=== PATIENT | female | born 1985 | race Caucasian/White ===

== ENCOUNTER 2019-05-22 15:33 | Observation (INO) | payer OTHER ==
[2019-05-22] MEDS ORDERED: SODIUM CHLORIDE 0.9% 500 ML 500 ML IV SCH (16:03)
[2019-05-22 16:10] VITALS: BP 99/62
[2019-05-22 16:22] LABS: Hematocrit 27.7 % (30.3-42.9); Hemoglobin 8.5 gm/dl (10.1-14.3); Mean Corpuscular HGB Conc 31 % (30-34); Red Blood Count 4.95 M/mm3 (3.65-5.03)
[2019-05-22 16:42] LABS: Mean Corpuscular Volume 56 fl (79-97); Red Cell Distribution Width 24.1 % (13.2-15.2)
[2019-05-22] MEDS ORDERED: IRON DEXTRAN COMPLEX 100 MG/2 ML INJ IM ONE (17:12)
[2019-05-22 17:47] LABS: Platelet Count 176 K/mm3 (140-440)
== END 2019-05-22 19:36 | disposition home or self-care (01) ==
LOC: LD 15:33
PROVIDERS: ADMIT Obstetrics & Gynecology; ATTEND Obstetrics & Gynecology
DX: O99.013 Anemia complicating pregnancy, third trimester (principal); Z3A.34 34 weeks gestation of pregnancy
CPT/HCPCS: 36415; 85027; 86850; 86900; 86901; 86920; 96372; G0378; G0379; J1750

== ENCOUNTER 2019-07-03 09:44 | Inpatient (IN) | payer OTHER ==
[2019-07-03] MEDS ORDERED: TERBUTALINE 1 MG/1 ML INJ IVP PRN (11:31)
[2019-07-03] MEDS ORDERED: BUTORPHANOL 2 MG/1 ML INJ IV PRN ×2 (11:31→11:59)
[2019-07-03] MEDS ORDERED: LIDOCAINE (2%) 20 MG/1 ML VIAL 20 ML MDV INFILTRATI ONE (11:31)
[2019-07-03] MEDS ORDERED: ePHEDrine SULFATE 50 MG/1 ML INJ IV PRN ×2 (11:31→14:47)
[2019-07-03] MEDS ORDERED: fentaNYL 100 MCG/2 ML INJ IV PRN (11:31)
[2019-07-03] MEDS ORDERED: AMPICILLIN/NS 2 GM/100 ML 2 GM/100 ML BAG IV ONE (11:31)
[2019-07-03] MEDS ORDERED: TERBUTALINE 1 MG/1 ML INJ SUB-Q PRN (11:31)
[2019-07-03] MEDS ORDERED: MINERAL OIL 30 ML ORAL LIQD PO PRN (11:31)
[2019-07-03] MEDS ORDERED: OXYTOCIN 20 UNIT/1000ML DRIP 20 UNITS/1,000 ML BAG IV SCH (12:00)
[2019-07-03] MEDS: LACTATED RINGERS 1,000 ML IV SCH ×3 (12:21→17:23)
--- NOTE | 2019-07-03 12:31 | History and Physical Report ---
History of Present Illness Date of examination: 07/03/19 Date of admission: 07/03/19 11:31 Chief complaint: Contractions History of present illness: 34yo G 4 P 3 0 0 2 at 40 weeks 1 day here with c/o contractions that started this morning. She reports +FMs but denies VB or LOF. She is a [employer] patient who initiated care at 13 weeks gestation. Her course was complicated by late entry to care, h/o accidental child @ age 2 in 2018, hypothyroidsim (on Synthroid 150mg PO daily), h/o syphilis(reactive RPR, neg TPA), +UTI, and vit D deficiency(was supplemented). LABS: B pos, Antibody Screen neg, Pap ASCUS/HPV neg, RI, VDRL reactive(Titer 1:2), HBsAg neg, HIV neg, Hgb A1C 5.6, Diabetes Screen 119, GC/CT neg, GBS pos. Past History Past Medical History: thyroid disease (hypothyroidism), other (anemia) Past Surgical History: appendectomy [employer] History: syphilis Family/Genetic History: none Social history: , lives with family, full code. denies: smoking, alcohol abuse, prescription drug abuse, IV drug use - Obstetrical History Expected Date of Delivery: 07/02/19 Actual Gestation: 40 Week(s) 1 Day(s) : 4 Para: 3 Hx # Term Pregnancies: 3 Number of Pregnancies: 0 Spontaneous Abortions: 0 Induced : 0 Number of Living Children: 2 #1 Infant Gender: Female year: 2,[birth year] (12/24/2014) Birthweight: 3.175 kg (7 lbs) Method of Delivery: Vaginal Gestational age at delivery: 41 Complications: none #2 Infant Gender: Male year: 2,[birth year] (01/25/2016) Birthweight: 3.629 kg (8 lbs) Method of Delivery: Vaginal Gestational age at delivery: 40 Complications: none #3 Infant Gender: Male year: 2,018 (02/26/2018) Birthweight: 3.09 kg (6 lbs 13 oz) Method of Delivery: Vaginal Complications: none Medications and Allergies Allergies Allergy/AdvReac Type Severity Reaction Status Date / Time No Known Allergies Allergy Verified 07/03/19 11:31 Home Medications Medication Instructions Recorded Confirmed Last Taken Type Ondansetron [Zofran] 4 mg PO Q6HR PRN #20 tablet 05/01/14 02/26/18 Unknown Rx Vit/Iron Fum/Folic AC 1 each PO QDAY #90 tablet 05/01/14 02/26/18 Unknown Rx [ Vitamin Tablet] Active Meds: Active Medications Butorphanol Tartrate (Stadol) 2 mg IV Q2H PRN PRN Reason: Pain , Severe (7-10) Last Admin: 07/03/19 12:20 Dose: 2 mg Documented by: Ephedrine Sulfate (Ephedrine Sulfate) 10 mg IV Q2M PRN PRN Reason: Hypotension Fentanyl (Sublimaze) 100 mcg IV Q2H PRN PRN Reason: Labor Pain Oxytocin/Sodium Chloride (Pitocin/Ns 20 Unit/1000ml Drip) 20 units in 1,000 mls @ 125 mls/hr IV DIRECT CAMRON Lactated Ringer's (Lactated Ringers) 1,000 mls @ 125 mls/hr IV DIRECT CAMRON Last Admin: 07/03/19 12:21 Dose: 125 mls/hr Documented by: Ampicillin Sodium (Ampicillin/Ns 2 Gm/100 Ml) 2 gm in 100 mls @ 100 mls/hr IV ONCE ONE; Protocol Stop: 07/03/19 12:30 Last Admin: 07/03/19 12:21 Dose: 100 mls/hr Documented by: Ampicillin Sodium (Ampicillin/Ns 1 Gm/50 Ml) 1 gm in 50 mls @ 100 mls/hr IV Q4HR CAMRON; Protocol Mineral Oil (Mineral Oil) 30 ml PO QHS PRN PRN Reason: Constipation Terbutaline Sulfate (Brethine) 0.25 mg SUB-Q ONCE PRN PRN Reason: Hyperstimulation/Hypertonicity Terbutaline Sulfate (Brethine) 0.25 mg IVP ONCE PRN PRN Reason: Hyperstimulation/Hypertonicity Review of Systems All systems: negative - Vital Signs Vital signs: Vital Signs Pulse BP 87 110/73 07/03/19 10:20 07/03/19 10:20 Temp Pulse Resp BP Pulse Ox 97.6 F 80 119/74 98 07/03/19 10:35 07/03/19 12:20 07/03/19 12:20 07/03/19 11:20 - Obstetrical FHR: auscultation normal, category 1 Uterine Contraction Monitor Mode: External Cervical Dilatation: 4 (per RN) Cervical Effacement Percentage: 80 (per RN) station: -2 (per RN) Uterine Contraction Pattern: Regular Results All other labs normal. Assessment and Plan - Patient Problems (1) 40 weeks gestation of Current Visit: Yes Status: Acute (2) Active labor at term Current Visit: Yes Status: Acute Plan to address problem: Admit to L&D with routine labor orders Anticipate vaginal delivery (3) Group B Streptococcus carrier, +RV culture, currently Current Visit: Yes Status: Acute Plan to address problem: Start ampicillin for GBS prophylaxis
[2019-07-03 12:52] LABS: Hematocrit 32.7 % (30.3-42.9); Mean Corpuscular HGB Conc 31 % (30-34); Red Blood Count 5.37 M/mm3 (3.65-5.03)
[2019-07-03 12:53] LABS: Mean Corpuscular Volume 61 fl (79-97); Red Cell Distribution Width 27.3 % (13.2-15.2)
[2019-07-03 12:54] LABS: Platelet Count 192 K/mm3 (140-440)
[2019-07-03] MEDS ORDERED: AMPICILLIN/NS 1 GM/50 ML 1 GM/50 ML BAG IV SCH (13:30)
--- NOTE | 2019-07-03 14:42 | Anesthesia Consultation ---
Anesthesia Consult and Med Hx Date of service: 07/03/19 - Airway Anesthetic Teeth Evaluation: Good ROM Head & Neck: Adequate Mental/Hyoid Distance: Adequate Mallampati Class: Class II Intubation Access Assessment: Probably Good - Pre-Operative Health Status ASA Pre-Surgery Classification: ASA2 Proposed Anesthetic Plan: Epidural, Spinal - Pulmonary Hx Asthma: No COPD: No Hx Pneumonia: No - Cardiovascular System Hx Hypertension: No - Central Nervous System Hx Seizures: No Hx Psychiatric Problems: No - Endocrine Hx Renal Disease: No Hx End Stage Renal Disease: No Hx Hypothyroidism: Yes Hx Hyperthyroidism: No - Hematic Hx Anemia: No Hx Sickle Cell Disease: No - Other Systems Hx Alcohol Use: No
[2019-07-03] MEDS ORDERED: fentaNYL-BUPIV 2 MCG/ML-0.125% 200 MCG/100 ML BAG EPIDURAL ONE (14:45)
--- NOTE | 2019-07-03 14:46 | Progress Note ---
Labor Epidural - Labor Epidural Start Time: 13:57 Stop Time: 14:17 Performed by:: BENNY PARISI Procedure: Patient requesting epidural for labor pain. Patient interviewed, labs are reviewed, IDed, consent signed. In the sterile conditions under local anesthesia 18G needle is placed in L3-L4 epidural space using water resistance technique. After loosing resistance noted CSF fluid drawing back - wet tap. Epidural needle withdrawn, placed in L2-L3 space. Spinal G27 needle is directed through the spinal membrane. Injected .5cc .75% Marcaine intrathecally. Epidural catheter passed to 14cm robert. Negative aspiration test and negative test dose. Tolerated well.
[2019-07-03] MEDS ORDERED: NALOXONE 2 MG/2 ML INJ IV PRN (14:47)
[2019-07-03] MEDS ORDERED: fentaNYL-BUPIV 2 MCG/ML-0.125% 200 MCG/100 ML BAG EPIDURAL SCH (15:00)
--- NOTE | 2019-07-03 17:06 | Event Note ---
Date: 07/03/19 s/p Epidural anesthesia SVE /-1 AROM @ 17:03, clear fluid, moderate amount Oxytocin initiated for labor augmentation Anticipate vaginal delivery
[2019-07-03] MEDS ORDERED: OXYTOCIN DRIP 30,000 MILLIUNITS/500 ML BAG IV ONE (17:07)
[2019-07-03] MEDS ORDERED: OXYTOCIN DRIP 30 UNITS/500 ML BAG IV SCH (18:00)
[2019-07-03] MEDS ORDERED: diphenhydrAMINE 25 MG CAP PO PRN (18:30)
[2019-07-03] MEDS ORDERED: WITCH HAZEL/ GLYCERIN PAD TP PRN (18:30)
[2019-07-03] MEDS ORDERED: MAGNESIUM HYDROXIDE (MOM) ORAL LIQD UDC PO PRN (18:30)
[2019-07-03] MEDS ORDERED: ACETAMINOPHEN 325 MG TAB PO PRN (18:30)
[2019-07-03] MEDS ORDERED: PROMETHAZINE 25 MG TAB PO PRN (18:30)
[2019-07-03] MEDS ORDERED: ONDANSETRON 4 MG/2 ML INJ IV PRN (18:30)
[2019-07-03] MEDS ORDERED: LANOLIN/ZINC/DIMETHICONE (LANSINOH) 7 GM TP PRN (18:30)
--- NOTE | 2019-07-03 18:52 | Procedure Note ---
OB Delivery Note - Delivery Date of Delivery: 07/03/19 Surgeon: JORDI TREVIZO Estimated blood loss: <100cc - Vaginal Delivery presentation: vertex Delivery position: OA Intrapartum events: mult.variable deceleratio Delivery induction: none Delivery augmentation: rupture of membranes, pitocin Delivery monitor: external FHT Route of delivery: Delivery placenta: spontaneous Episiotomy: none Delivery laceration: 1st degree Delivery repair: vicryl Anesthesia: epidural Delivery comments: Called to for delivery. Pt found to be 10/100/+1 and pushing. of viable living male infant in OA position. Head and shoulders delivered with ease. Infant placed on mother's chest. Delayed cord clamping then cord was clamped times 2 then cut by provider. 8/9. Placenta delivered spontaneously and intact with 3CV. FF @ U1 with fundal massage and IV pitocin. Exploration of tears revealed 1st degree perineal laceration which was repaired with 3-[address]-1. Mom and baby stable. EBL 100cc. - A at 1 minute: 8 at 5 minutes: 9 Infant Gender: Male ( wt 3614 GMS)
[2019-07-03] MEDS: IBUPROFEN 600 MG TAB PO SCH ×2 (20:00→23:23)
[2019-07-04] MEDS: IBUPROFEN 600 MG TAB PO SCH ×3 (05:23→17:39)
[2019-07-04] MEDS: LEVOTHYROXINE 150 MCG TAB PO SCH (05:23)
[2019-07-04 08:58] LABS: Hematocrit 28.8 % (30.3-42.9); Hemoglobin 8.9 gm/dl (10.1-14.3)
[2019-07-04] MEDS: PRENATAL VIT27-FE FUMARATE-FOLIC ACID VIT TAB PO SCH (10:13)
[2019-07-04] MEDS: FERROUS SULFATE 325 MG TAB PO SCH (10:13)
--- NOTE | 2019-07-04 10:22 | Progress Note ---
Assessment and Plan - Patient Problems (1) Normal spontaneous vaginal delivery Current Visit: No Status: Acute Plan to address problem: Continue routine PP orders Anticipate d/c home tomorrow F/U at office in 6 wks for routine PP visit (2) Anemia Current Visit: Yes Status: Acute Qualifiers: Anemia type: iron deficiency Plan to address problem: Asymptomatic Continue daily oral iron supplementation Increase iron rich foods into diet (3) Hypothyroidism Current Visit: Yes Status: Acute Plan to address problem: Continue daily po synthyroid Subjective - Subjective Date of service: 07/04/19 Principal diagnosis: S/P ; PPD#1 Interval history: See admission H & P, OB delivery summary and PP progress notes Patient reports: appetite normal, voiding normally, pain well controlled, flatus, ambulating normally : doing well, bottle feeding (and ) Objective - Vital Signs Latest vital signs: Vital Signs Temp Pulse Resp BP BP Pulse Ox 07/04/19 07:28 98.1 F 72 18 114/72 96 07/04/19 05:32 97.6 F 79 18 106/64 97 07/04/19 01:10 98.0 F 88 18 98/60 97 07/03/19 20:22 97.6 F 70 18 111/68 99 07/03/19 19:52 54 L 87 07/03/19 19:50 82 L 07/03/19 19:48 72 107/58 07/03/19 19:47 71 81 L 07/03/19 19:42 86 07/03/19 19:40 65 104/56 07/03/19 19:37 70 83 L 07/03/19 19:32 85 07/03/19 19:31 102 H 77 L 07/03/19 19:26 86 07/03/19 19:25 75 106/66 07/03/19 19:21 77 L 07/03/19 19:15 84 07/03/19 19:14 25 L 81 L 07/03/19 19:10 69 106/62 85 07/03/19 19:03 72 80 L 07/03/19 18:56 70 91/58 07/03/19 18:41 50 L 84 07/03/19 18:35 118 H 86 07/03/19 18:28 30 L 84 07/03/19 18:25 71 93/61 100 07/03/19 18:20 91 H 100 04/02/20 18:15 80 100 07/03/19 18:10 79 93/57 100 07/03/19 18:05 73 100 07/03/19 18:00 91 H 100 07/03/19 17:55 96 H 100 07/03/19 17:50 70 100 07/03/19 17:45 76 100 07/03/19 17:40 76 100 07/03/19 17:35 77 100 07/03/19 17:30 81 100 07/03/19 17:25 65 100 07/03/19 17:20 71 100 07/03/19 17:15 71 99 07/03/19 17:10 68 99 07/03/19 17:05 95 H 99 07/03/19 17:00 93 H 99 07/03/19 16:55 79 99 07/03/19 16:50 73 99 07/03/19 16:45 88 98 07/03/19 16:40 75 99 07/03/19 16:35 83 99 07/03/19 16:30 78 99 07/03/19 16:25 87 100 07/03/19 16:20 86 100 07/03/19 16:15 85 99 07/03/19 16:10 91 H 99 07/03/19 16:05 89 100 07/03/19 16:00 94 H 100 07/03/19 15:55 97 H 99 07/03/19 15:50 93 H 100 07/03/19 15:45 76 98 07/03/19 15:40 77 98 07/03/19 15:35 88 97 07/03/19 15:30 86 97 07/03/19 15:25 91 H 98 07/03/19 15:20 76 98 07/03/19 15:15 88 98 07/03/19 15:10 84 99 07/03/19 15:05 80 99 07/03/19 15:00 80 98 07/03/19 14:55 75 98 07/03/19 14:50 66 99 07/03/19 14:45 83 99 07/03/19 14:40 72 100 07/03/19 14:35 71 99 07/03/19 14:30 70 99 07/03/19 14:25 85 99 07/03/19 14:20 85 99 07/03/19 14:15 87 100 07/03/19 14:10 77 105/71 100 07/03/19 14:05 81 100 07/03/19 14:03 79 108/71 07/03/19 14:00 80 100 07/03/19 13:55 74 100 07/03/19 13:51 92 H 93 07/03/19 13:50 87 94 07/03/19 13:45 77 99 07/03/19 13:40 71 98 07/03/19 13:35 88 99 07/03/19 13:30 75 99 07/03/19 13:25 80 98 07/03/19 13:20 80 99 07/03/19 13:15 80 99 07/03/19 13:10 78 98 07/03/19 13:05 98 H 98 07/03/19 13:00 78 98 07/03/19 12:58 90 105/72 07/03/19 12:57 97.7 F 78 14 105/72 98 07/03/19 12:55 85 98 07/03/19 12:50 92 H 99 07/03/19 12:45 79 98 07/03/19 12:40 87 98 07/03/19 12:20 80 119/74 07/03/19 11:48 83 125/85 07/03/19 11:20 92 H 98 07/03/19 11:15 90 98 07/03/19 11:10 85 98 07/03/19 11:05 93 H 98 07/03/19 11:00 91 H 98 07/03/19 10:55 85 98 07/03/19 10:50 87 98 07/03/19 10:45 91 H 100 07/03/19 10:40 90 99 07/03/19 10:35 97.6 F 17 L 97 07/03/19 10:30 102 H 99 07/03/19 10:25 89 98 07/03/19 10:20 87 110/73 Intake and Output 07/03/19 07/04/19 07/04/19 23:59 07:59 15:59 Intake Total 385.417 240 Output Total 200 Balance 185.417 240 Intake: IV 385.417 Lactated Ringers 1,000 ml 385.417 @ 125 mls/hr IV DIRECT CAMRON Rx#:[id number] Intake, Free Water 240 Output: Urine 200 Void 200 Other: Total, Output Amount 200 Estimated Blood Loss 100 - Exam Breasts: Present: normal Cardiovascular: Present: Regular rate Lungs: Present: Normal air movement Abdomen: Present: soft Uterus: Present: firm, fundal height at umbilicus Extremities: Present: normal Deep Tendon Reflex Grade: Normal +2 - Labs Labs: Abnormal lab results 07/03/19 07/04/19 Range/Units 11:15 08:43 RBC 5.37 H (3.65-5.03) M/mm3 Hgb 10.0 L 8.9 L (10.1-14.3) gm/dl Hct 28.8 L (30.3-42.9) % MCV 61 L (79-97) fl MCH 19 L (28-32) pg RDW 27.3 H (13.2-15.2) %
--- NOTE | 2019-07-04 10:30 | Discharge Summary ---
Providers - Providers Date of Admission: 07/03/19 18:30 Date of discharge: 07/05/19 (1200) Attending physician: SLOAN GARCIA MD Primary care physician: SLOAN GARCIA MD Hospitalization Reason for admission: active labor Delivery: Episiotomy: none Laceration: none Other procedures: none complications: none Discharge diagnosis: IUP at term delivered, other (anemia) [place] baby: male Hospital course: See admission H & P, OB delivery summary and PP progress notes Disposition: DC-30 STILL A PATIENT - Discharge Diagnoses (1) Normal spontaneous vaginal delivery Status: Acute (2) Anemia Status: Acute Qualifiers: Anemia type: iron deficiency (3) Hypothyroidism Status: Acute Plan - Discharge Medications Prescriptions: Ferrous Sulfate [Feosol 325 MG tab] 325 mg PO QDAY 30 Days #30 tablet - Provider Discharge Summary Activity: routine, no sex for 6 weeks, no heavy lifting 4 weeks, no strenuous exercise Diet: other (Iron rich diet) Instructions: routine Additional instructions: [] Smoking cessation referral if applicable(refer to patient education folder for contact #) [] Refer to [facility] Booklet Call your doctor immediately for: * Fever > 100.5 * Heavy vaginal bleeding ( >1 pad per hour) * Severe persistent headache * Shortness of breath * Reddened, hot, painful area to leg or breast - Follow up plan Follow up: SLOAN GARCIA MD [Primary Care Provider] - 6 Weeks
--- NOTE | 2019-07-04 13:07 | Post Anesthesia Evaluation ---
- Post Anesthesia Evaluation Patient Participated: Yes Airway Patent: Yes Stable Respiratory Function: Yes Nausea/Vomiting: No Temp > 96.8F: Yes Pain Manageable: Yes Adequeate Hydration: Yes Anesthesia Complications: No Block Receding Appropriately: Yes Patient on Ventilator: No
[2019-07-05] MEDS: IBUPROFEN 600 MG TAB PO SCH ×3 (00:02→13:26)
[2019-07-05] MEDS: LEVOTHYROXINE 150 MCG TAB PO SCH (06:00)
[2019-07-05] MEDS: FERROUS SULFATE 325 MG TAB PO SCH (10:07)
[2019-07-05] MEDS: PRENATAL VIT27-FE FUMARATE-FOLIC ACID VIT TAB PO SCH (10:07)
[2019-07-05 15:07] VITALS: BP 114/78
== END 2019-07-05 13:55 | disposition home or self-care (01) | DRG 807 ==
LOC: TRG 09:44 → LD 11:27 → UNDOADMIN 11:31 → TRG 11:31 → LD 18:30 → OB 20:28
PROVIDERS: ADMIT Obstetrics & Gynecology; ATTEND Obstetrics & Gynecology
PROC: 10E0XZZ Delivery of Products of Conception, External Approach (ICD-10-PCS; principal; 2019-07-03)
PROC: 0HQ9XZZ Repair Perineum Skin, External Approach (ICD-10-PCS; 2019-07-03)
PROC: 3E0R3BZ Introduction of Anesthetic Agent into Spinal Canal, Percutaneous Approach (ICD-10-PCS; 2019-07-03)
PROC: 00HU33Z Insertion of Infusion Device into Spinal Canal, Percutaneous Approach (ICD-10-PCS; 2019-07-03)
DX: O99.824 Streptococcus B carrier state complicating childbirth (principal); Z37.0 Single live birth; Z3A.40 40 weeks gestation of pregnancy; Z90.49 Acquired absence of other specified parts of digestive tract; E03.9 Hypothyroidism, unspecified; O99.284 Endocrine, nutritional and metabolic diseases complicating childbirth; D50.9 Iron deficiency anemia, unspecified; O90.81 Anemia of the puerperium; O70.0 First degree perineal laceration during delivery
CPT/HCPCS: 36415; 85014; 85018; 85027; 86592; 86850; 86900; 86901; G0378; J0290; J0595; J2590; J7120